=== PATIENT | male | born 1980 ===

== ENCOUNTER 2019-03-11 21:09 | Emergency (ER) | payer MEDICAID, OTHER ==
[2019-03-11 21:26] VITALS: BP 113/59
[2019-03-11] MEDS ORDERED: Ibuprofen TAB* 600 MG PO ONE (21:51)
--- NOTE | 2019-03-11 22:20 | UC ---
Hand/Wrist HPI - HPI Summary HPI Summary: Pt presents to for evaluation of left hand. Pt with LHD. Pt tripped and fell on a curb at 630pm. Pt with pain and swelling left hand since. No open wounds. no analgesia taken. No ice applied. No paresthesia. Pt with a h/o injury to the same Medications reviewed this visit - History Of Current Complaint Chief Complaint: UCUpperExtremity Stated Complaint: LT HAND INJURY Time Seen by Provider: 03/11/19 21:23 Hx Obtained From: Patient Onset/Duration: Gradual Onset Severity Initially: Moderate Severity Currently: Moderate Pain Intensity: 8 - Allergies/Home Medications Allergies/Adverse Reactions: Allergies Allergy/AdvReac Type Severity Reaction Status Date / Time sertraline [From Zoloft] Allergy Airway Verified 03/11/19 21:27 Obstruction Home Medications: Home Medications ARIPiprazole TAB* [Abilify 20 MG TAB*] 20 mg PO DAILY 03/11/19 [History Confirmed 03/11/19] Buprenorp/Nalox 8-2 MG FILM [Suboxone 8 mg-2 mg Sl Film] 2 each SL DAILY [History Confirmed 03/11/19] Divalproex Sodium [Depakote] 3,000 mg PO DAILY 03/11/19 [History Confirmed 03/11] Potassium 99 mg PO DAILY 03/11/19 [History Confirmed 03/11/19] PMH/Surg Hx/FS Hx/Imm Hx Previously Healthy: Yes - Surgical History Surgical History: None - Family History Known Family History: Positive: Non-Contributory - Social History Occupation: Employed Full-time Lives: With Family Alcohol Use: None Substance Use Type: None Smoking Status (MU): Heavy Every Day Tobacco Smoker Review of Systems All Other Systems Reviewed And Are Negative: Yes Constitutional: Positive: Negative Skin: Positive: Negative Eyes: Positive: Negative Motor: Positive: Negative Neurovascular: Positive: Negative Musculoskeletal: Positive: Other: - Left hand and wrist Neurological: Positive: Negative Is Patient Immunocompromised?: No Physical Exam - Summary Physical Exam Summary: Vital Signs Reviewed: Yes A+Ox3, no distress Eyes: Conjunctiva Clear ENT: Hearing grossly normal Neck: Positive: Supple Respiratory: Positive: No respiratory distress, No accessory muscle use Cardiovascular: 2+ radial, 2 + ulnar Musculoskeletal Exam: + abduct left shoulder + flex/ext elbow + pronate/ supinate + flex/ext wrist with pain lateral aspect of dorsum hand over 5th MT and ulnar styloid. No crepitus mild edema Neurological: Positive: Alert, + sensation throughout + thumb up, a ok, finger spread, finger cross Psychological: Positive: Normal Response To examiner Skin: Positive: no rash, no ecchymosis, mild edema dorsum left hand Triage Information Reviewed: Yes Vital Signs: Initial Vital Signs Temp 97.8 F 03/11/19 21:23 Pulse 61 03/11/19 21:23 Resp 16 03/11/19 21:23 BP 113/59 03/11/19 21:23 Pulse Ox 99 03/11/19 21:23 Procedures - Splinting Left Upper Extremity Location: LUE Hand-Made Type: orthoglass Splint: volar Pre-Proc Neuro Vasc Exam: normal Post-Proc Neuro Vasc Exam: normal Splint Applied by Provider: [facility] - Radiology No standard instances Radiology Interpretation Completed By: ED Physician - No fracture wrist or hand fracture fifth metacarpal Re-Evaluation - Re-Evaluation First Eval Comment: Imaging reviewed with patient. No fracture to my preliminary. Aware will be reread in the morning. Patient patient in a splint. Sling. Work note Recommend follow-up with orthopedics. Patient would like to see a hand surgeon he knows in [place]. burned disc. Patient also given Dr. Taylor and contact information. Patient comfortable in agreement with plan. Hand/Wrist Course/Dx - Course Course Of Treatment: This patient presents to urgent care for evaluation of his left hand. Patient mechanical fall 3 hours ago. Patient with pain in the left dorsum of the hand as well as wrist. Patient is relatively independent. No analgesic taken. On exam vital signs are stable. Patient with discomfort in the dorsum of his left hand fourth and fifth carpal as well as the left wrist. Patient without any paresthesias. Distal CSM intact. We'll check imaging studies. We'll admit splint. Patient to take some NSAIDs. Patient comfortable in agreement with plan. We'll reassess after x-ray - Differential Dx/Diagnosis Provider Diagnosis: Left wrist pain Discharge ED - Sign-Out/Discharge Documenting (check all that apply): Patient Departure All imaging exams completed and their final reports reviewed: No - Discharge Plan Condition: Stable Disposition: HOME Patient Education Materials: Hand Sprain (ED), Hematoma (ED) Forms: *Work Release Referrals: Jane De Anda MD [Primary Care Provider] - Milad Taylor MD [Medical Doctor] - Additional Instructions: - Okay to alternate ibuprofen (Advil, Motrin) and Tylenol (acetaminophen) every 3 hours for pain or fever. Take with food. Do NOT take for more than 4-5 days. -apply ice (20 min at a time) every 2-3 hours for the next 2 days -- wear sling for comfort and support. Leave splint on until you are seen in follow-up by the orthopedic nurse . -Contact the orthopedic provider tomorrow or your specialist in [place] schedule a follow-up appointment. . Contact your doctor or return with questions or concerns - Billing Disposition and Condition Condition: STABLE Disposition: Home
--- NOTE | 2019-03-12 08:25 | ED ---
Progress - Progress Note Progress Note: FInal xray reviewed. Posterior sublux of ulna. Patient needs to see hand surgery as already planned in Dr Mar note as soon as possible. Re-Evaluation - Re-Evaluation First Eval Comment: Imaging reviewed with patient. No fracture to my preliminary. Aware will be reread in the morning. Patient patient in a splint. Sling. Work note Recommend follow-up with orthopedics. Patient would like to see a hand surgeon he knows in [place]. burned disc. Patient also given Dr. Taylor and contact information. Patient comfortable in agreement with plan. Course/Dx - Diagnoses Provider Diagnoses: Left wrist pain Discharge ED - Sign-Out/Discharge Documenting (check all that apply): Patient Departure All imaging exams completed and their final reports reviewed: Yes - Discharge Plan Condition: Stable Disposition: HOME Patient Education Materials: Hand Sprain (ED), Hematoma (ED) Forms: *Work Release Referrals: Jane De Anda MD [Primary Care Provider] - Milad Taylor MD [Medical Doctor] - Additional Instructions: - Okay to alternate ibuprofen (Advil, Motrin) and Tylenol (acetaminophen) every 3 hours for pain or fever. Take with food. Do NOT take for more than 4-5 days. -apply ice (20 min at a time) every 2-3 hours for the next 2 days -- wear sling for comfort and support. Leave splint on until you are seen in follow-up by the vendor management specialist . -Contact the orthopedic provider tomorrow or your specialist in [place] schedule a follow-up appointment. . Contact your doctor or return with questions or concerns - Billing Disposition and Condition Condition: STABLE Disposition: Home
== END 2019-03-11 22:25 | disposition home or self-care (01) ==
LOC: UCCORT 21:09
DX: M25.532 Pain in left wrist (principal); M25.442 Effusion, left hand; Z88.8 Allergy status to other drugs, medicaments and biological substances; F17.290 Nicotine dependence, other tobacco product, uncomplicated
CPT/HCPCS: 99213; A9270-GY; G0463